=== PATIENT | female | born 1995 | race Caucasian/White ===

== ENCOUNTER 2017-10-30 19:47 | Emergency (ER) | payer SELFPAY ==
[2017-10-30 20:41] LABS: #Basophils 0.1 thou/uL (0.0-0.2); #Lymphocytes 2.5 thou/uL (1.20-3.40); #Monocytes 0.6 thou/uL (0.11-0.59); #Neutrophils 5.3 thou/uL (1.40-6.50); %Basophils 0.8 % (0.0-1.0); %Eosinophils 0.5 % (0.0-10.0); %Lymphocytes 29.1 % (21.0-51.0); %Monocytes 6.9 % (0.0-10.0); %Neutrophils 62.8 % (42.0-75.0); Hemoglobin 14.1 g/dL (12.0-16.0); Mean Corpuscular HGB CONC 33.6 g/dL (32.0-36.0); Mean Corpuscular Hemoglobin 32.3 pg (27.0-31.0); Mean Corpuscular Volume 96.2 fl (81.0-99.0); Mean Platelet Volume 7.3 fL (7.4-10.4); Platelet Count 298 thou/uL (130-400); RBC Distribution Width 11.3 % (11.5-14.5); Red Blood Cell (RBC) Count 4.38 mill/uL (4.20-5.40); White Blood Cell (WBC) Count 8.5 thou/uL (4.8-10.8)
[2017-10-30 20:56] LABS: Pregs Control Background? CLEAR/WHITE (CLR/WHITE); Pregs Control Bar Appear? YES (CONTROL BAR)
[2017-10-30 20:57] LABS: BHCG - Serum Indeterminate (NEGATIVE)
[2017-10-30 21:01] LABS: ALT (SGPT) 25 U/L (8-55); AST (SGOT) 19 U/L (5-34); Albumin 4.6 g/dL (3.5-5.0); Alkaline Phosphatase 146 U/L (40-150); Anion Gap 12 mmol/L (10-20); BUN (Urea Nitrogen) 12 mg/dL (7.0-18.7); Bilirubin, Total 0.3 mg/dL (0.2-1.2); Calc. Creatinine Clearance 0 mL/min (70-130); Calcium 10.3 mg/dL (7.8-10.44); Carbon Dioxide 25 mmol/L (22-29); Chloride 104 mmol/L (98-107); Estimated GFR-MDRD 73; Globulin 3.1 g/dL (2.4-3.5); Glucose 76 mg/dL (70-105); Potassium 4.3 mmol/L (3.5-5.1); Protein, Total 7.7 g/dL (6.0-8.3); Sodium 137 mmol/L (136-145)
[2017-10-30 21:40] LABS: Bilirubin Negative (Negative); Blood, Urine Small (Negative); Clarity CLEAR (Clear); Glucose, Urine (Dipstick) Negative (Negative); Leukocyte Negative (Negative); Nitrite Negative (Negative); Protein, Urine (Dipstick) Negative (Neg-Trace); Specific Gravity, Urine 1.008 (1.002-1.036); Urobilinogen 0.2 mg/dL (0.2-1.0)
[2017-10-30 21:41] LABS: Pregnancy Test - Urine (BHCG) Negative (Negative); Pregu Control Background? CLEAR/WHITE (CLR/WHITE); Pregu Control Bar Appear? YES (CONTROL BAR); Specific Gravity 1.008 (1.002-1.036)
[2017-10-30 21:42] LABS: Bacteria/HPF None Seen HPF (None Seen); Hyaline Casts/LPF 0-3 HYALINE CAST LPF (0-3 Hyaline); Pathc Cast-AUWi Flag 0.29 (0-2.49); RBC/HPF 0-3 HPF (0-3); Squamous Epithelial 0-3 HPF (0-3); WBC/HPF None Seen HPF (0-3)
--- NOTE | 2017-10-30 22:50 | ULT ---
PELVIC ULTRASOUND: 10/30/17 HISTORY: Vaginal spotting. Quantitative beta HCG level of 11. FINDINGS: The uterus measures 6.5 cm x 2.6 cm x 3.5 cm. The endometrial stripe measures 0.3 cm in thickness. No fluid collection or fluid is seen in the endometrial canal. Small Nabothian cyst is seen in the ady on of the cervix. The right ovary measures 3.1 cm x 1.3 cm x 3 cm with the left ovary measuring 2.3 c m x 1.3 cm x 2.4 cm. There is an anechoic cystic structure in the right ovary with suggestion of a th in linear septation which may represent a small dominant right ovarian follicle/small right ovarian c yst. Doppler evaluation of each ovary with spectral analysis and color flow evaluation does demonstrate ar terial flow. Small amount of free fluid in seen in the cul-de-sac which may be physiologic in origin. The fallopian tubes are not visualized bilaterally. IMPRESSION: 1. Normal appearing uterus, and no fluid collection is seen in the endometrial canal to suggest an intrauterine gestation. Ectopic cannot be excluded based on this examination. Followup q uantitative beta HCG levels are suggested. 2. Small amount of free fluid in the pelvis probably physiologic in origin. 3. Dominant follicle versus ovarian cyst with septation in the right ovary. POS: [facility]
== END 2017-10-30 22:55 | disposition home or self-care (01) ==
LOC: ERS 19:47
DX: O20.0 Threatened abortion (principal); O99.341 Other mental disorders complicating pregnancy, first trimester; F41.9 Anxiety disorder, unspecified; Z3A.01 Less than 8 weeks gestation of pregnancy
CPT/HCPCS: 36415; 76856; 80053; 81003; 81015; 81025; 84702; 84703; 85025; 86900; 86901

== ENCOUNTER 2017-11-02 13:50 | Emergency (ER) | payer BC, SELFPAY | END 2017-11-02 16:39 | disposition home or self-care (01) | LOC: ERS 13:50 | DX: O03.9 Complete or unspecified spontaneous abortion without complication (principal); F41.9 Anxiety disorder, unspecified | CPT/HCPCS: 36415; 84702; 86900; 86901; 99282 ==